=== PATIENT | female | born 1990 | race Caucasian/White ===

== ENCOUNTER 2018-12-03 19:44 | Emergency (ER) | payer MEDICAID ==
[2018-12-03 20:09] VITALS: RESP 18
[2018-12-03] MEDS ORDERED: Sodium Chloride 0.9% 1,000 ML IV ONE (20:16)
--- NOTE | 2018-12-03 20:16 | C.PDOC ---
History Of Present Illness 28 year old female, , 6 weeks presents to the ED c/o vaginal spotting for the past 2 days. Patient's LMP was on 10/18/18. Patient denies fever, chills, nausea, vomit, diarrhea, back pain, weakness, numbness. Time Seen by Provider: 12/03/18 20:15 Chief Complaint (Nursing): Female Genitourinary History Per: Patient History/Exam Limitations: no limitations Onset/Duration Of Symptoms: Days (2) Current Symptoms Are (Timing): Still Present Quality Of Discomfort: "Pain" Associated Symptoms: denies: Nausea, Vomiting, Urinary Symptoms Recent travel outside of the [place]: No Additional History Per: Patient Abnormal Vaginal Bleeding: Yes Last Menstral Period: 10/18/18 : 2 Para: 1 Past Medical History Reviewed: Historical Data, Nursing Documentation, Vital Signs Vital Signs: Last Vital Signs Temp 98.1 F 12/03/18 19:55 Pulse 66 12/03/18 19:55 Resp 18 12/03/18 19:55 BP 117/71 12/03/18 19:55 Pulse Ox 97 12/03/18 19:55 - Medical History PMH: No Chronic Diseases Surgical History: No Surg Hx Family History: States: Unknown Family Hx - Social History Hx Alcohol Use: No Hx Substance Use: No Review Of Systems Constitutional: Negative for: Fever, Chills Cardiovascular: Negative for: Chest Pain Respiratory: Negative for: Shortness of Breath Gastrointestinal: Negative for: Nausea, Vomiting, Abdominal Pain Genitourinary: Positive for: Vaginal Bleeding. Negative for: Dysuria, Vaginal Discharge Musculoskeletal: Negative for: Back Pain Skin: Negative for: Rash Physical Exam - Physical Exam Appears: Non-toxic, No Acute Distress Skin: Warm, Dry Head: Normacephalic Eye(s): bilateral: Normal Inspection Oral Mucosa: Moist Neck: Supple Chest: Symmetrical Cardiovascular: Rhythm Regular Respiratory: No Rales, No Rhonchi, No Wheezing Gastrointestinal/Abdominal: Soft, No Tenderness, No Guarding, No Rebound Back: No CVA Tenderness Extremity: Bilateral: Atraumatic, Normal Color And Temperature, Normal ROM Neurological/Psych: Oriented x3, Normal Speech, Normal Cognition Gait: Steady ED Course And Treatment - Laboratory Results Result Diagrams: 12/03/18 20:46 12/03/18 20:46 O2 Sat by Pulse Oximetry: 97 (ON RA) Pulse Ox Interpretation: Normal Progress Note: Plan: - Labs. - IV fluids. - UA. - Pelvic US Medical Decision Making Medical Decision Making: Upon provider reevaluation patient is feeling better, is medically stable, and requires no further treatment in the ED at this time. Patient will be discharged home . Counseling was provided and all questions were answered regarding diagnosis and need for follow up with the referred clinic. There is agreement to discharge plan. Return if symptoms persist or worsen. Disposition Counseled Patient/Family Regarding: Studies Performed, Diagnosis, Need For Followup - Disposition Referrals: [facility] [Outside] [facility] [Outside] Disposition: HOME/ ROUTINE Disposition Time: 20:16 Condition: FAIR Additional Instructions: Please return if symptoms recur Instructions: Threatened Miscarriage (DC), Bleeding With (DC) Forms: [facility] (Pashto), Work/School/Gym Excuse - Clinical Impression Clinical Impression: Threatened - Scribe Statement The provider has reviewed the documentation as recorded by the Scribe Lewis Szymanski All medical record entries made by the Scribe were at my direction and personally dictated by me. I have reviewed the chart and agree that the record accurately reflects my personal performance of the history, physical exam, medical decision making, and the department course for this patient. I have also personally directed, reviewed, and agree with the discharge instructions and disposition.
[2018-12-03 20:51] LABS: BASO # 0.1 K/uL (0.0-0.2); BASO % 1.3 % (0.0-2.0); EOS # 0.1 K/uL (0.0-0.7); EOS % 1.7 % (0.0-4.0); HEMOGLOBIN 11.8 g/dL (11.0-16.0); LYMPH # 1.8 K/uL (1.0-4.3); LYMPH % 31.6 % (20.0-40.0); MEAN CELL VOLUME 83.4 fL (81.0-99.0); MEAN CORPUSCULAR HEMOGLOBIN 27.4 pg (27.0-31.0); MEAN CORPUSCULAR HGB CONC 32.8 g/dL (33.0-37.0); MEAN PLATELET VOLUME 10.4 fL (7.2-11.7); MONO # 0.5 K/uL (0.0-0.8); NEUT # 3.2 K/uL (1.8-7.0); NEUT % 56.4 % (50.0-75.0); RBC 4.33 Mil/uL (3.80-5.20); RED CELL DISTRIBUTION WIDTH 15.1 % (11.5-14.5); WHITE BLOOD COUNT 5.7 K/uL (4.8-10.8)
[2018-12-03 21:03] LABS: ALB/GLOB RATIO 1.3 (1.0-2.1); ALBUMIN 4.3 g/dL (3.5-5.0); ALT/SGPT 15 U/L (9-52); AST/SGOT 14 U/L (14-36); BLOOD UREA NITROGEN 13 mg/dL (7-17); GFR NON-AFRICAN AMERICAN > 60
[2018-12-03 21:07] LABS: SQUAMOUS EPITHIAL 2 /hpf (0-5); URINE BILIRUBIN NEGATIVE (NEGATIVE); URINE BLOOD NEGATIVE (NEGATIVE); URINE CLARITY Clear (Clear); URINE COLOR Yellow (YELLOW); URINE GLUCOSE (UA) NORMAL (Normal); URINE LEUKOCYTE ESTERASE NEG Leu/uL (Negative); URINE PROTEIN NEGATIVE (NEGATIVE)
[2018-12-03] MEDS ORDERED: Sodium Chloride 0.9% 1,000 ML ONE (21:24)
[2018-12-03 23:43] VITALS: BP 105/65; PULSE 67; TEMP 98.5
[2018-12-04 00:12] VITALS: O2SAT 97
--- NOTE | 2018-12-04 16:35 | US ---
Date of service: 12/03/2018 PROCEDURE: First trimester ultrasound HISTORY: vag bleed COMPARISON: None TECHNIQUE: Standard protocol for this study/examination. FINDINGS: LMP: 10/18/2018 Prior examinations from the current : None TECHNIQUE: Real-time 2D imaging, duplex and color Doppler. FINDINGS: Cardiac activity: Present Rate: 128 BPM Measurements: [place] rump length: 0.67 cm Gestational age based on CRL 6 weeks 4 days Gestational age 6 weeks 2 days based on gestational sac measurement 1.82 cm Gestational age derived from LMP: 6 weeks 4 days DEMETRA based on LMP: 07/25/2019 DEMETRA based on biometry: 07/26/2019 Gestational concordance noted Yolk sac identified Cervix: No Cervical abnormalities: Negative examination for cervical dilatation or effacement. Closed cervix measuring 3.10 cm Subchorionic hemorrhage: None UTERUS: 6.4 x 7.1 x 10.0 cm. ADNEXA: Right: 1.5 x 2.8 x 2.7 cm. Normal Doppler arterial waveform documented. Masslike finding in the left adnexa perhaps hemorrhagic cyst 2.3 x 2.2 cm. Left: 2.4 x 3.7 x 3.7 cm. Normal Doppler arterial waveform documented Fluid in the cul-de-sac: IMPRESSION: Six weeks 3 days live intrauterine gestation. Gestational concordance documented.
== END 2018-12-04 00:22 | disposition home or self-care (01) ==
LOC: C.ER 19:44
DX: O20.0 Threatened abortion (principal); Z3A.01 Less than 8 weeks gestation of pregnancy
CPT/HCPCS: 76805; 76817; 80053; 81001; 84702; 85025; 86850; 86900; 96360; 99285; J7030